=== PATIENT | female | born 1950 | race Caucasian/White ===

== ENCOUNTER → 2018-04-03 | Outpatient (CLI) | payer MEDICARE ==
[2018-04-03 11:05] LABS: Basophils # (auto) 0 uL; Eosinophils # (auto) 0 uL; Hematocrit 36.8 % (36.0-46.0); Lymphocytes # (auto) 1.9 uL; Lymphocytes % (auto) 32.6 % (10.0-50.0); Monocytes # (auto) 0.7 uL; Neutrophils # (auto) 3.1 uL; Red Cell Distribution Width 13.7 % (11.8-14.3)
[2018-04-03 11:07] LABS: Basophils % (auto) 0.5 % (0.0-2.0); Eosinophils % (auto) 0.5 % (0.0-7.0); Hemoglobin 12.5 g/dL (12.2-16.2); Mean Corpuscular Hemoglobin 34.1 pg (28.0-32.0); Mean Corpuscular Hgb Conc. 33.9 g/dL (32.0-36.0); Mean Corpuscular Volume 100.6 fL (80.0-100.0); Monocytes % (auto) 12.7 % (0.0-12.0); Neutrophils % (auto) 53.7 % (37.0-80.0); Platelet Count (auto) 315 10^3/uL (140-450); Red Blood Cells 3.66 10^6/uL (4.0-5.20); White Blood Cell 5.7 10^3/uL (4.4-10.8)
[2018-04-03 11:20] LABS: Urine Bacteria NONE SEEN /hpf (None Seen); Urine Blood Negative /uL (Negative); Urine Specific Gravity 1.005 (1.001-1.035); Urine WBC 1 /hpf (0 - 5)
[2018-04-03 11:28] LABS: INR 0.92 (0.9-1.15); Partial Thromboplastin Time 26.9 sec (23.78-33.04); Prothrombin Time 9.9 sec (9.27-12.13)
[2018-04-03 11:45] LABS: Albumin 4.1 g/dL (3.4-5.0); BUN/Creatinine Ratio 14.8; Bilirubin, Total 0.3 mg/dL (0.2-1.0); Potassium 3.5 mmol/L (3.5-5.1); Total Protein 7.5 g/dL (6.4-8.2)
== END | disposition home or self-care (01) ==
LOC: LAB 10:47
PROVIDERS: ATTEND Anesthesiology
DX: M65.311 Trigger thumb, right thumb (principal); R22.31 Localized swelling, mass and lump, right upper limb; Z79.01 Long term (current) use of anticoagulants
CPT/HCPCS: 36415; 80053; 81001; 85025; 85610; 85730